=== PATIENT | female | born 1965 | race Caucasian/White ===

== ENCOUNTER → 2016-07-24 | Outpatient (CLI) | payer BC ==
--- NOTE | 2016-07-25 09:38 | KCIC ---
Bilateral digital screening mammograms with CAD: HISTORY Routine screening. COMPARISON Comparison is made to previous studies dated 11/26/2012 and 11/19/2012. FINDINGS Breast density category B. The skin and nipples show no abnormalities. No abnormal lymph nodes are seen in the axilla. The breast parenchyma shows scattered fibroglandular density. There appears to be a new 6 millimeter nodule located in the 6:30 position anteriorly in the left breast approximately 2.5 centimeters from nipple. Further evaluation with ultrasound is recommended. There are no other dominant masses, suspicious calcifications or architectural distortions. IMPRESSION New 6 millimeter nodule in the anterior 6:30 position of the left breast approximately 2.5 centimeters from the nipple. Recommend further evaluation with ultrasound. This study was interpreted with the benefit of Computerized Aided Detection (CAD). Mammography is not 100% sensitive in detecting breast cancer. Therefore, a self breast exam and a clinical breast exam are very important. A negative mammogram does not negate a clinically suspicious finding and should not result in a delay in biopsying a clinically suspicious abnormality. BI-RADS category 0: Incomplete. Ultrasound followup is recommended. This patient's information has been entered into a reminder system for the patient to be notified with the results of this examination and a target date for her next mammograms. Electronically signed by: Sara Real MD (Jul 25, 2016 09:36:18)
== END | disposition home or self-care (01) ==
LOC: KCIC MAMMO 08:03
PROVIDERS: ATTEND Physician Assistant Medical
DX: Z12.31 Encounter for screening mammogram for malignant neoplasm of breast (principal)
CPT/HCPCS: G0202; 77067

== ENCOUNTER → 2016-08-15 | Outpatient (CLI) | payer BC ==
--- NOTE | 2016-08-15 08:40 | KCIC ---
Left breast ultrasound: Reason for examination: Nodular density on screening mammogram. Comparison is made to mammographic exam dated 07/24/2016. Ultrasound examination was performed with attention to the area of mammographic concern and the axilla. In the 6:30 position 2.5 centimeters from the nipple and appearing to correlate with the area of mammographic concern, there is a hypoechoic circumscribed lesion measuring 6.9 millimeters in greatest dimension. The appearance suggests a small fibroadenoma or possibly a small papilloma. No other cystic or solid lesions are seen. No abnormal appearing lymph nodes are seen in the axilla. Impression: Small 6.9 millimeter circumscribed nodule at the 6:30 position which would correlate with the area of mammographic concern. This probably represents a small fibroadenoma or papilloma. Recommend close followup with revaluation in 6 months with mammograms and ultrasound. BI-RADS category 3: Probably benign. This patient's information has been entered into a reminder system for the patient to be notified with the results of this examination and a target date for her next mammograms. Electronically signed by: Sara Real MD (Aug 15, 2016 08:39:38)
== END | disposition home or self-care (01) ==
LOC: KCIC US 08:07
PROVIDERS: ATTEND Physician Assistant Medical
DX: R92.8 Other abnormal and inconclusive findings on diagnostic imaging of breast (principal); N63 Unspecified lump in breast
CPT/HCPCS: 76641

== ENCOUNTER → 2017-02-19 | Outpatient (CLI) | payer BC ==
--- NOTE | 2017-02-19 10:49 | RAD ---
Examination: Left breast diagnostic mammogram and targeted ultrasound left breast History: History 6 month follow-up of the nodule of the left breast. Comparison: 08/15/2016 ultrasound and 07/24/2016 mammogram Technique: CC, MLO views of the left breast were performed. Targeted ultrasound left breast were performed. Findings: The left breast parenchyma demonstrates heterogeneously dense breast tissue, category C. Small nodule identified in the left breast at 6:30 position is similar to prior exam. On the targeted ultrasound of the left breast at 6:30 position, a elliptical shaped hypoechogenicity probably a fibroadenoma or possibly a papilloma similar to prior exam. Impression: Probably benign findings Recommend left breast mammogram in 6 month when the patient is due for screening mammogram. Patient was entered into a reminder system for target due date of 07/24/2017.
== END | disposition home or self-care (01) ==
LOC: KCIC MAMMO 08:21
PROVIDERS: ATTEND Physician Assistant Medical
DX: N63 Unspecified lump in breast (principal)
CPT/HCPCS: 76641; G0206; G0279; 77061; 77065